=== PATIENT | male | born 1960 | race African-American/Black ===

== ENCOUNTER 2020-02-07 10:12 | Inpatient (IN) | payer OTHER ==
[~2020-02-07] VITALS: Ht 175.3 cm; Wt 96.2 kg
[2020-02-07] MEDS ORDERED: SODIUM CHLORIDE 0.9% 1,000 ML IV ONE (10:26)
[2020-02-07 10:59] LABS: BG BASE EXCESS -2.4 mmol/L (-2.0-2.0); BG CARBOXYHEMOGLOBIN 0.3 % (0.5-1.5); BG DEOXYHEMOGLOBIN 5.4 % (0.0-5.0); BG FRACTION INSPIRED OXYGEN 21; BG HCO3 ACT 21.8 mmol/L (22.0-26.0); BG METHEMOGLOBIN 0.2 % (0.0-1.5); BG OXYGEN SATURATION 94.6 % (92.0-98.5); BG OXYHEMOGLOBIN 94.1 % (94.0-97.0); BG PCO2 35.6 mmHg (35.0-45.0); BG PH 7.405 (7.350-7.450); BG PO2 74.6 mmHg (75.0-100.0); BG SAMPLE SITE RIGHT RADIAL; BG VENT MODE ROOM AIR
[2020-02-07] MEDS ORDERED: PANTOPRAZOLE SODIUM 40 MG/VIAL IV ONE (11:00)
[2020-02-07 11:15] LABS: BASOPHILS % 0.3 % (0.0-2.0); EOSINOPHILS % 0.8 % (0.0-5.0); HEMATOCRIT. 33.2 % (42.0-52.0); HEMOGLOBIN. 11.5 g/dL (14.0-18.0); LYMPHOCYTES % 42.9 % (20.0-50.0); MEAN CORPUSCULAR HEMOGLOBIN 29.9 pg (28.0-32.0); MEAN CORPUSCULAR VOLUME 86.5 fL (80.0-94.0); MEAN PLATELET VOLUME 7.9 fl (7.4-10.4); MONOCYTES % 4.9 % (2.0-8.0); NEUTROPHILS % 51.1 % (40.0-76.0); PLATELET 232 x1000/uL (130-400); RED BLOOD CELL COUNT 3.84 mill/uL (4.7-6.1); RED CELL DISTRIBUTION WIDTH 13.7 % (11.6-14.6)
[2020-02-07 11:16] LABS: CHLORIDE 112 mEq/L (98-107)
[2020-02-07 11:37] LABS: INR 1.1; PARTIAL THROMBOPLASTIN TIME 21.3 sec (23.4-31.0); PROTHROMBIN TIME 11.4 sec (9.6-11.0)
[2020-02-07] MEDS ORDERED: MAGNESIUM/ALUMINUM HYDROXIDE/SIMETHICONE 30ML UDC PO PRN (13:45)
[2020-02-07] MEDS ORDERED: ONDANSETRON HCL 4MG/2ML INJ IV PRN (13:45)
[2020-02-07] MEDS ORDERED: CLONIDINE 0.1MG TABLET PO PRN (13:45)
[2020-02-07] MEDS ORDERED: ACETAMINOPHEN 325MG TABLET PO PRN ×2 (13:45)
[2020-02-07] MEDS ORDERED: GUAIFENESIN 200MG/10ML SUGAR FREE UDC PO PRN (13:45)
[2020-02-07] MEDS ORDERED: IPRATROPIUM/ALBUTEROL 0.5-3(2.5)MG/3ML NEB NEB PRN (13:45)
[2020-02-07] MEDS ORDERED: PANTOPRAZOLE 80 MG in SODIUM CHLORIDE 0.9% 100 ML IV SCH (14:30)
[2020-02-07 14:37] LABS: *AMPHETAMINES SCREEN URINE NEGATIVE (NEGATIVE); *BARBITURATES SCREEN URINE NEGATIVE (NEGATIVE); *BENZODIAZEPINES SCREEN URINE NEGATIVE (NEGATIVE); *COCAINE SCREEN URINE NEGATIVE (NEGATIVE)
[2020-02-07 14:38] LABS: CANNABINOID URINE SCREEN NEGATIVE (NEGATIVE); METHADONE URINE SCREEN NEGATIVE (NEGATIVE); OPIATES URINE SCREEN NEGATIVE (NEGATIVE); PHENCYCLIDINE URINE SCREEN NEGATIVE (NEGATIVE)
[2020-02-07 14:53] LABS: LDL CHOLESTEROL 179 mg/dL (5-100)
[2020-02-07 14:54] LABS: HDL CHOLESTEROL 37 mg/dL (40-59); TOTAL IRON BINDING CAPACITY 266 ug/dL (250-450)
[2020-02-07 14:55] LABS: CREATINE KINASE 120 IU/L (39-308)
[2020-02-07 14:58] LABS: CREATINE KINASE MB FRACTION < 1.0 ng/mL (0.5-3.6)
[2020-02-07 15:00] LABS: HEMATOCRIT 33.9 % (42.0-52.0); HEMOGLOBIN 11.5 g/dL (14.0-18.0); MEAN CORPUSCULAR HEMOGLOBIN 29.5 pg (28.0-32.0); MEAN CORPUSCULAR VOLUME 86.4 fL (80.0-94.0); PLATELET 225 x1000/uL (130-400); RED BLOOD CELL COUNT 3.92 mill/uL (4.7-6.1); RED CELL DISTRIBUTION WIDTH 13.6 % (11.6-14.6)
[2020-02-07 15:07] LABS: FOLIC ACID (FOLATE) SERUM 12.3 ng/mL (>5.38)
[2020-02-07 19:00] LABS: HEMATOCRIT 33.8 % (42.0-52.0); HEMOGLOBIN 11.4 g/dL (14.0-18.0)
[2020-02-07] MEDS ORDERED: ZOLPIDEM TARTRATE 5MG TABLET PO PRN (21:00)
[2020-02-07 23:49] LABS: CREATINE KINASE 137 IU/L (39-308)
[2020-02-07 23:50] LABS: CREATINE KINASE MB FRACTION < 1.0 ng/mL (0.5-3.6)
[2020-02-08 00:28] LABS: HEMATOCRIT 32.2 % (42.0-52.0); HEMOGLOBIN 11.1 g/dL (14.0-18.0)
[2020-02-08] MEDS ORDERED: PANTOPRAZOLE 80 MG in SODIUM CHLORIDE 0.9% 100 ML IV SCH ×2 (00:30→12:00)
[2020-02-08 06:28] LABS: HEMATOCRIT 31.8 % (42.0-52.0)
[2020-02-08 09:30] VITALS: BP 127/82
[2020-02-08 10:00] VITALS: BP 127/82
[2020-02-08] MEDS ORDERED: AMLO10TA80 MT (11:53)
[2020-02-08 12:00] VITALS: BP 131/86
[2020-02-08] MEDS: DEXT 5%/0.9% NACL 1,000 ML IV SCH (12:58)
[2020-02-08] MEDS ORDERED: SIMETHICONE 40 MG/0.6 ML 30ML ONE (13:13)
[2020-02-08] MEDS ORDERED: MIDAZOLAM HCL 5 MG/5 ML VIAL IV PRN (13:29)
[2020-02-08] MEDS ORDERED: MIDAZOLAM HCL 5 MG/5 ML VIAL ONE (13:30)
[2020-02-08] MEDS ORDERED: FENTANYL CITRATE/PF 50MCG/ML 2ML VIAL IV PRN (13:30)
[2020-02-08] MEDS ORDERED: FENTANYL CITRATE/PF 50MCG/ML 2ML VIAL ONE (13:30)
[2020-02-08] MEDS ORDERED: DIAZEPAM 5 MG/ML 2ML CPJ IV PRN (13:33)
[2020-02-08] MEDS ORDERED: DIAZEPAM 5 MG/ML 2ML CPJ ONE (13:36)
[2020-02-08] MEDS ORDERED: BACTERIOSTATIC SODIUM CHLORIDE 0.9% 30ML VIAL IJ ONE (14:26)
[2020-02-08 16:00] VITALS: BP 136/87
[2020-02-08 16:55] LABS: BASOPHILS % 0.6 % (0.0-2.0); EOSINOPHILS % 1.3 % (0.0-5.0); HEMATOCRIT. 31.4 % (42.0-52.0); HEMOGLOBIN. 10.6 g/dL (14.0-18.0); LYMPHOCYTES % 47.8 % (20.0-50.0); MEAN CORPUSCULAR HEMOGLOBIN 29.3 pg (28.0-32.0); MEAN PLATELET VOLUME 7.5 fl (7.4-10.4); MONOCYTES % 5.1 % (2.0-8.0); NEUTROPHILS % 45.2 % (40.0-76.0); PLATELET 221 x1000/uL (130-400); RED BLOOD CELL COUNT 3.61 mill/uL (4.7-6.1); RED CELL DISTRIBUTION WIDTH 13.7 % (11.6-14.6)
[2020-02-08 16:56] LABS: CHLORIDE 110 mEq/L (98-107)
[2020-02-08] MEDS: SUCRALFATE 1G TABLET PO SCH ×2 (17:21→21:45)
[2020-02-08] MEDS: PANTOPRAZOLE SODIUM 40 MG/VIAL IV SCH (17:22)
[2020-02-08 20:00] VITALS: BP 128/86
[2020-02-09] VITALS: BP 128/85
[2020-02-09] MEDS: DEXT 5%/0.9% NACL 1,000 ML IV SCH ×2 (00:21→16:26)
[2020-02-09 04:00] VITALS: BP 123/81
[2020-02-09] MEDS: PANTOPRAZOLE SODIUM 40 MG/VIAL IV SCH ×2 (05:10→18:00)
[2020-02-09] MEDS: SUCRALFATE 1G TABLET PO SCH ×3 (05:38→16:20)
[2020-02-09 06:00] LABS: CHLORIDE 110 mEq/L (98-107)
[2020-02-09 06:23] LABS: BASOPHILS % 0.4 % (0.0-2.0); EOSINOPHILS % 2.8 % (0.0-5.0); HEMATOCRIT. 28.1 % (42.0-52.0); HEMOGLOBIN. 9.8 g/dL (14.0-18.0); LYMPHOCYTES % 42.8 % (20.0-50.0); MEAN CORPUSCULAR HEMOGLOBIN 30.1 pg (28.0-32.0); MEAN CORPUSCULAR VOLUME 86.1 fL (80.0-94.0); MEAN PLATELET VOLUME 7.6 fl (7.4-10.4); MONOCYTES % 5.8 % (2.0-8.0); NEUTROPHILS % 48.2 % (40.0-76.0); PLATELET 201 x1000/uL (130-400); RED BLOOD CELL COUNT 3.27 mill/uL (4.7-6.1); RED CELL DISTRIBUTION WIDTH 13.7 % (11.6-14.6)
[2020-02-09 08:00] VITALS: BP 124/85
[2020-02-09 12:00] VITALS: BP 124/80
[2020-02-09] MEDS ORDERED: IRON SUCROSE COMPLEX 100 MG/5 ML ML IV SCH (13:30)
[2020-02-09 16:00] VITALS: BP 140/92
[2020-02-09 17:43] VITALS: BP 127/88
== END 2020-02-09 19:35 | disposition home or self-care (01) | DRG 378 ==
LOC: ER 10:12 → 5WST 12:07 → EDBEDREQTM 13:08 → EDBEDREQ 13:08 → ENRESERV 02-08 07:13
PROVIDERS: ADMIT Internal Medicine; ATTEND Internal Medicine
PROC: 0DB78ZX Excision of Stomach, Pylorus, Via Natural or Artificial Opening Endoscopic, Diagnostic (ICD-10-PCS; principal; 2020-02-08)
DX: K26.4 Chronic or unspecified duodenal ulcer with hemorrhage (principal); D62 Acute posthemorrhagic anemia; E44.0 Moderate protein-calorie malnutrition; E78.5 Hyperlipidemia, unspecified; K29.81 Duodenitis with bleeding; K29.71 Gastritis, unspecified, with bleeding; K20.9 Esophagitis, unspecified; R55 Syncope and collapse; E83.51 Hypocalcemia; E78.00 Pure hypercholesterolemia, unspecified; I10 Essential (primary) hypertension; Z87.11 Personal history of peptic ulcer disease; Z68.31 Body mass index [BMI] 31.0-31.9, adult
CPT/HCPCS: 36415; 36600; 71045; 80048; 80053; 80061; 80305; 82375; 82550; 82553; 82607; 82746; 82805; 83036; 83540; 83550; 84484; 85014; 85018; 85025; 85027; 86850; 86900; 86920; 88305; 88313; 93005; 93306; 93970; 96374; 99285; C9113; J2250; J3010; J3490; J7030; J7042; J7050